=== PATIENT | male | born 1950 | race Hispanic/Latino ===

== ENCOUNTER → 2020-10-01 | Outpatient (CLI) | payer OTHER, MEDICARE ==
[~2020-10-01] VITALS: Ht 182.9 cm; Wt 109.2 kg
[~2020-10-01] MED LIST: 0.9% NACL 500ML IV.SOLN 500 ML IV SCH; AEC81 PO; ATOR20TA65 PO; CEFAZOLIN SODIUM 1 GM VIAL IVP SCH; CLOP75TA32 PO; LEVO125C4 PO; LISI-809 PO; METO25TA6 PO
[2020-10-01 15:03] LABS: BASOPHILS % (AUTO) 0.4 % (0.0-5.0); EOSINOPHILS % (AUTO) 5.3 % (0.0-8.0); LYMPHOCYTES % (AUTO) 20.7 % (21.0-51.0); MEAN CORPUSCULAR HEMOGLOBIN 30.2 pg (27.0-33.0); MEAN CORPUSCULAR HGB CONC 32.4 g/dL (32.0-36.0); MONOCYTES % (AUTO) 8.3 % (3.0-13.0); NEUTROPHILS % (AUTO) 64.9 % (40.0-77.0); PLATELET COUNT (AUTO) 185 K/uL (130-400); RED BLOOD CELL COUNT(AUTO) 4.84 MIL/uL (4.50-6.20); RED CELL DISTRIBUTION WIDTH 13.8 % (11.0-15.5)
[2020-10-01 15:04] LABS: APPEARANCE,URINE Clear (CLEAR); BILIRUBIN,URINE Negative (NEGATIVE); COLOR,URINE Yellow (YELLOW); GLUCOSE, URINE (UA) Negative (NEGATIVE); KETONES,URINE Negative (NEGATIVE); LEUKOCYTE ESTERASE ,URINE Negative (NEGATIVE); NITRATE,URINE Negative (NEGATIVE); OCCULT BLOOD,URINE Negative (NEGATIVE); PH,URINE 6.5 (5.0-8.0); PROTEIN,URINE Negative (NEGATIVE)
[2020-10-01 15:16] LABS: POTASSIUM 4.3 mmol/L (3.5-5.1)
[2020-10-01 15:19] LABS: INR 1.01 (0.85-1.15)
[2020-10-01 15:20] LABS: PARTIAL THROMBOPLASTIN TIME 26.8 SEC (26.3-35.5)
[2020-10-02 10:46] VITALS: BP 149/76
== END | disposition home or self-care (01) ==
LOC: DAH 10:00 → EDSTATUS 12:00
PROVIDERS: ATTEND Internal Medicine Cardiovascular Disease
DX: I71.4 Abdominal aortic aneurysm, without rupture (principal); Z20.822 Contact with and (suspected) exposure to COVID-19
CPT/HCPCS: 36415; 71045; 80048; 81003; 85025; 85610; 85730; 86850; 86900; 86901; 86923; 87426; 93005

== ENCOUNTER 2020-10-09 05:30 | Inpatient (IN) | payer OTHER, MEDICARE ==
[2020-10-08 14:03] LABS: POTASSIUM 4.2 mmol/L (3.5-5.1)
[2020-10-08 14:12] LABS: BASOPHILS % (AUTO) 0.4 % (0.0-5.0); EOSINOPHILS % (AUTO) 4.6 % (0.0-8.0); HEMATOCRIT 45.7 % (42-54); LYMPHOCYTES % (AUTO) 23.3 % (21.0-51.0); MEAN CORPUSCULAR HEMOGLOBIN 30.2 pg (27.0-33.0); MEAN CORPUSCULAR HGB CONC 32.6 g/dL (32.0-36.0); MEAN CORPUSCULAR VOLUME 92.7 fL (79-99); MONOCYTES % (AUTO) 9.1 % (3.0-13.0); NEUTROPHILS % (AUTO) 62.3 % (40.0-77.0); PLATELET COUNT (AUTO) 177 K/uL (130-400); RED BLOOD CELL COUNT(AUTO) 4.93 MIL/uL (4.50-6.20); RED CELL DISTRIBUTION WIDTH 13.8 % (11.0-15.5)
[2020-10-08 14:13] VITALS: BP 151/78
[2020-10-09] VITALS (24 sets, daily range): BP systolic 106–144; BP diastolic 49–92
[~2020-10-09] VITALS: Ht 182.9 cm; Wt 111.1 kg
[~2020-10-09 05:30] MED LIST changes: -0.9% NACL 500ML IV.SOLN 500 ML IV SCH; -CEFAZOLIN SODIUM 1 GM VIAL IVP SCH
[2020-10-09] MEDS ORDERED: 0.9%NACL 1000ML 1,000 ML IV ONE (05:47)
[2020-10-09] MEDS ORDERED: CEFAZOLIN 3GM /D5W 100ML 100 ML IV SCH (06:00)
[2020-10-09] MEDS ORDERED: MIDAZOLAM HCL 1 MG/ML 2ML VIAL ONE (06:41)
[2020-10-09] MEDS ORDERED: LIDOCAINE HCL MPF 1% 5ML VIAL ONE (06:41)
[2020-10-09] MEDS ORDERED: FENTANYL CITRATE PF 50 MCG/1 ML 2ML VIAL ONE (06:41)
[2020-10-09] MEDS ORDERED: IODIXANOL 320 MG/ML 100 ML VIAL ONE ×2 (06:53→06:54)
[2020-10-09] MEDS ORDERED: HEPARIN 10,000 UNIT/10ML (1,000 UNIT/ML) VIAL ONE ×2 (06:53→08:07)
[2020-10-09] MEDS ORDERED: SUCCINYLCHOLINE 200MG/10ML SYR ONE (07:09)
[2020-10-09] MEDS ORDERED: LIDOCAINE PF 100MG/5ML (2%) SYRINGE 5ML ONE (07:09)
[2020-10-09] MEDS ORDERED: PROPOFOL 10 MG/ML 20ML VIAL IV ONE ×2 (07:10→09:30)
[2020-10-09] MEDS ORDERED: ROCURONIUM 10MG/1ML SYR 10 MG/ML ML ONE (07:10)
[2020-10-09] MEDS ORDERED: ESMOLOL HCL 10 MG/ML 10 ML VIAL ONE (07:22)
[2020-10-09] MEDS ORDERED: ROCURONIUM BROMIDE 10MG/1ML 5ML VL ONE (07:53)
[2020-10-09] MEDS ORDERED: ATROPINE 1MG SYG IVP ONE ×2 (07:56)
[2020-10-09] MEDS ORDERED: MORPHINE 4 MG SYG ONE (09:18)
[2020-10-09] MEDS ORDERED: GLYCOPYRROLATE 0.2 MG/ML 5 ML VIAL ONE (09:23)
[2020-10-09] MEDS ORDERED: NEOSTIGMINE 5MG/5ML SYR IV ONE (09:23)
[2020-10-09] MEDS ORDERED: ONDANSETRON 4MG INJ IV PRN (09:30)
[2020-10-09] MEDS ORDERED: MORPHINE 5 MG/ML VIAL (5MG OR GREATER DOSE) IV PRN (09:30)
[2020-10-09] MEDS ORDERED: PHARMACY COMMUNICATION MISC SCH (09:30)
[2020-10-09] MEDS ORDERED: MORPHINE 4 MG SYG IV PRN (09:30)
[2020-10-09] MEDS ORDERED: NON-FORMULARY MEDICATION 1 EACH (Levothyroxine Sodium (Levothyroxine) 125 MCG) PO SCH (09:42)
[2020-10-09] MEDS ORDERED: NOREPINEPHRINE 4MG/NS 250ML IV SCH (10:00)
[2020-10-09] MEDS ORDERED: NITROGLYCERIN 50MG/D5W 250ML 1 BOT IV PRN (10:00)
[2020-10-09] MEDS: 0.9%NACL 1000ML 1,000 ML IV SCH ×2 (10:36→18:08)
[2020-10-09] MEDS: CEFAZOLIN SODIUM 1 GM VIAL IVP SCH ×2 (16:44→23:58)
[2020-10-09] MEDS: BENZOCAINE/MENTH/CETYLPYRD CL 1 EACH LOZENGE MM PRN ×2 (16:48→20:34)
[2020-10-09] MEDS: METOPROLOL TARTRATE 25 MG TAB PO SCH (20:34)
[2020-10-09] MEDS ORDERED: ATORVASTATIN 20 MG TABLET PO SCH (21:00)
[2020-10-10] VITALS (9 sets, daily range): BP systolic 111–129; BP diastolic 51–65
[2020-10-10] MEDS: 0.9%NACL 1000ML 1,000 ML IV SCH (00:58)
[2020-10-10] MEDS: BENZOCAINE/MENTH/CETYLPYRD CL 1 EACH LOZENGE MM PRN (03:55)
[2020-10-10 08:03] LABS: HEMATOCRIT 36.5 % (42-54); MEAN CORPUSCULAR HEMOGLOBIN 30.1 pg (27.0-33.0); MEAN CORPUSCULAR HGB CONC 32.3 g/dL (32.0-36.0); MEAN CORPUSCULAR VOLUME 93.1 fL (79-99); RED BLOOD CELL COUNT(AUTO) 3.92 MIL/uL (4.50-6.20); WHITE BLOOD COUNT (AUTO) 8.1 K/uL (4.8-10.8)
[2020-10-10 08:15] LABS: CREATININE 0.9 mg/dL (0.5-1.5); POTASSIUM 3.9 mmol/L (3.5-5.1)
[2020-10-10] MEDS: METOPROLOL TARTRATE 25 MG TAB PO SCH (08:26)
[2020-10-10] MEDS ORDERED: ASPIRIN 81 MG EC TAB PO SCH (09:00)
[2020-10-10] MEDS ORDERED: LISINOPRIL 5 MG TABLET PO SCH (09:00)
[2020-10-10] MEDS ORDERED: CLOPIDOGREL 75MG TAB PO SCH (09:00)
[2020-10-11] MEDS ORDERED: LEVOTHYROXINE 125 MCG TABLET PO SCH (06:53)
== END 2020-10-10 09:39 | disposition home or self-care (01) | DRG 269 ==
LOC: DAHIP 05:30 → 2CH 09:16
PROVIDERS: ADMIT Internal Medicine; ATTEND Internal Medicine
PROC: B410YZZ Fluoroscopy of Abdominal Aorta using Other Contrast (ICD-10-PCS; principal; 2020-10-09)
PROC: 047D3ZZ Dilation of Left Common Iliac Artery, Percutaneous Approach (ICD-10-PCS; 2020-10-09)
PROC: 04V03DZ Restriction of Abdominal Aorta with Intraluminal Device, Percutaneous Approach (ICD-10-PCS; 2020-10-09)
DX: I71.4 Abdominal aortic aneurysm, without rupture (principal); E03.9 Hypothyroidism, unspecified; E66.9 Obesity, unspecified; Z68.33 Body mass index [BMI] 33.0-33.9, adult; E78.5 Hyperlipidemia, unspecified; I10 Essential (primary) hypertension; I25.10 Atherosclerotic heart disease of native coronary artery without angina pectoris; Z98.61 Coronary angioplasty status; Z83.3 Family history of diabetes mellitus
CPT/HCPCS: 34705; 34713; 36415; 80048; 85025; 85027; 86850; 86900; 86901; 86923; 87635; 93005; A4344; A4606; C1725; C1760; C1769; C1887; C1894; G0378; J0330; J0461; J0690; J1644; J2001; J2250; J2270; J2704; J2710; J3010; J3490; J7030; Q9967